=== PATIENT | female | born 1990 | race Caucasian/White ===

== ENCOUNTER 2018-07-01 11:05 | Inpatient (IN) | payer BC ==
--- NOTE | 2018-07-01 12:26 | HP ---
General Information - Reason for Visit Pt w/ ctx starting last night, stronger since this morning. Seen in office for scheduled visit, was 4cm dilation. - General Information Maternal Age: 28 Grav: 4 Para: 1 SAB: 2 IEA: 0 Estimated Due Date: 06/29/18 Determined By: Early Ultrasound Gestational Age in Weeks/Days: 40 2/7 Maternal Blood Type and Rh: A Positive - Results this Serology/RPR Result: Non-Reactive Rubella Result: Immune HBsAg Result: Negative HIV Result: Negative GBS Culture Result: Negative Past Medical History Delivery History: See Records - hx HELLP syndrome, on Magnesium Pertinent Past Medical History: Non-Contributory Pertinent Past Surgical History: See Records - inguinal hernia repar, T&A, wisdom tooth extraction Pertinent Family History: Non-Contributory - Antepartal Records Antepartal Records: Reviewed, Uncomplicated Review of Systems Constitutional: Comfortable CV Complaint: No Respiratory: Shortness of Breath: No Gastrointestinal: No Nausea/Vomiting, Normal Bowel Movement Genitourinary: No Dysuria, No Bleeding, No Leaking Fluid Musculoskeletal: Contractions Neurological: No Headache, No Visual Changes Movement: Normal Exam Allergies/Adverse Reactions: Allergies MS Cefaclor [From Ceclor] Allergy (Unknown, Verified 07/01/18 11:48) Unknown Reaction Details pt has never taken med her mother and sister were allergic MS Penicillins [Penicillins] Allergy (Unknown, Verified 07/01/18 11:48) Unknown Reaction Details pt has never taken med she said her mother and sister were allergic T-98.2, P-80, R-16, BP-96/66, O2- 100% - Measurements Height: 5 ft 3 in Weight: 66.678 kg Weight in lbs: 147.075414 Body Mass Index (BMI): 26.0 Pre- Weight: 52.163 kg Weight Gained This : 32 lbs and 0 ozs - Exam Breast: Breast Exam Deferred CVA: No CVA Tenderness Heart: Normal Rhythm/Heart Sounds HEENT: No Significant Findings Lungs: Clear Bilaterally Rectal: Rectal Exam Deferred Reflexes: DTR 2+ Thyroid: No Thyromegaly - Abdominal Exam Abdomen Exam: Non-Tender, Fundal Height Consistent with Dates - Ultrasound/Biophysical Profile Ultrasound Status: Not Done Targeted Exam Findings See L&D Outpatient Visit Provider Note for Findings: N/A Estimated Weight: 7.5 # Cervical Exam: 4cm Effacement: 90% Station: -2 Presenting Part: Vertex Membrane Status: Intact Bleeding/Discharge: None EFM Findings - External Monitor Findings Baseline Heart Rate: 130 External Monitor Findings: Accelerations Present, No Pattern of Variable or Late Decelerations, Variability Moderate, Baseline Stable Contractions: Irregular, Mild, Moderate, 45-90 Seconds Contraction Frequency: 5-10 minutes Assessment/Plan - Assessment 28 year old at 40 2/7 weeks gestation with hx HELLP syndrome in previous , in early labor, no evidence of acidemia - Obstetrical Risk Factors Obstetrical Risk Factors: Post-Dates Risk Factors Comment: hx HELLP in prior - Plan Plan: Admit - Anticipate Vaginal Delivery - Date/Time of Admission Date of Admission: 07/01/18 Time of Admission: 12:18
[2018-07-01 12:49] LABS: ABS Basophils 0.1 10^3/ul (0-0.2); ABS Eosinophils 0.1 10^3/ul (0-0.6); ABS Monocytes 0.7 10^3/ul (0-0.8); ABS Nucleated RBC 0 10^3/ul; Eosinophil % 0.7 % (0-6); Hematocrit 39 % (35-47); Hemoglobin 13.2 g/dl (12.0-16.0); Lymphocyte % 18.6 % (25-47); Mean Corpuscular HGB Conc 34 g/dl (31-36); Mean Corpuscular Hemoglobin 30 pg (27-31); Mean Corpuscular Volume 89 fL (80-97); Mean Platelet Volume 8.5 um3 (7.4-10.4); Nucleated Red Blood Cells % 0; Platelet Count 183 10^3/ul (150-450); Red Blood Count 4.39 10^6/ul (4.00-5.40); Red Cell Distribution Width 13 % (10.5-15); White Blood Count 10.9 10^3/ul (3.5-10.8)
[2018-07-01 13:16] LABS: EGFR Non-African American 129.8 (>60); Uric Acid 4.5 mg/dL (2.3-6.6)
[2018-07-01] MEDS ORDERED: Witch Hazel PAD* JAR TOPICAL PRN (21:48)
[2018-07-01] MEDS ORDERED: Glycerin ADULT SUPP PR PRN (21:48)
[2018-07-01] MEDS ORDERED: Acetaminophen TAB* 325 MG PO PRN (21:48)
[2018-07-01] MEDS ORDERED: Dibucaine 1% 28.35 GM TUBE PR PRN (21:48)
[2018-07-02] MEDS ORDERED: OXYTOCIN* 10 UNITS/ML 1 ML VIAL ONE (01:24)
[2018-07-02] MEDS: Ibuprofen TAB* 600 MG PO PRN ×4 (04:11→21:58)
[2018-07-02 06:53] LABS: ABS Basophils 0.1 10^3/ul (0-0.2); ABS Eosinophils 0 10^3/ul (0-0.6); ABS Lymphocytes 2.4 10^3/ul (1.0-4.8); ABS Monocytes 1.2 10^3/ul (0-0.8); ABS Nucleated RBC 0 10^3/ul; Eosinophil % 0.3 % (0-6); Hematocrit 39 % (35-47); Hemoglobin 13.6 g/dl (12.0-16.0); Lymphocyte % 14.3 % (25-47); Mean Corpuscular HGB Conc 35 g/dl (31-36); Mean Corpuscular Hemoglobin 31 pg (27-31); Mean Corpuscular Volume 88 fL (80-97); Mean Platelet Volume 8.5 um3 (7.4-10.4); Nucleated Red Blood Cells % 0; Platelet Count 195 10^3/ul (150-450); Red Blood Count 4.47 10^6/ul (4.00-5.40); Red Cell Distribution Width 13 % (10.5-15); White Blood Count 16.7 10^3/ul (3.5-10.8)
[2018-07-02] MEDS: Docusate CAP* 100 MG PO SCH ×3 (08:57→21:58)
[2018-07-02] MEDS ORDERED: Ferrous Gluconate TAB* 324 MG TAB PO SCH (09:00)
[2018-07-03] MEDS: Ibuprofen TAB* 600 MG PO PRN (05:50)
[2018-07-03 08:37] VITALS: BP 103/73
[2018-07-03] MEDS: Docusate CAP* 100 MG PO SCH (08:50)
--- NOTE | 2018-07-04 06:45 | PROCNOTE ---
[facility] OB: Delivery Note - Delivery A Date of : 07/01/18 Time of : 20:56 [place] Sex: Female Weight at : 3.515 kg Score 1 Minute: 9 Score 5 Minutes: 9 Gestational Age in Weeks and Days at Delivery: 40 Weeks and 2 Days Delivery Method: Spontaneous Vaginal Labor: Spontaneous Did Patient attempt ?: N/A, No Previous Amniotic Fluid: Clear Estimated Blood Loss: 300 Anesthesia/Analgesia: None Delivered By: Sandrine Clifford - Nursery Level of Nursery: Regular/Bedside - Perineum Perineal Injury: 1st Degree - Events Delivery Events of Note: None Apply - Additional Delivery Notes Additional Delivery Notes: Pt admitted in active labor. She progressed to full dilation, using no pain medications or epidural. She began spontaneous and effective pushing soon after. She birthed a viable female infant OA to XU, with shoulders easily following head. placed on maternal abdomen, dried and stimulated, Apgars of 9/9. After pulsation ceased, cord was clamped and cut. Placenta soon delivered, maternal side presenting, complete and intact. Pt sustained a small first degree perineal laceration, repaired with absorbable suture resulting in good hemostasis and tissue approximation. Pt and infant stable, anticipate normal course.
== END 2018-07-03 11:29 | disposition home or self-care (01) | DRG 560 ==
LOC: MCHOBOUT 11:05 → MCHOB 12:18
PROVIDERS: ADMIT Midwife; ATTEND Midwife
PROC: 10E0XZZ Delivery of Products of Conception, External Approach (ICD-10-PCS; principal; 2018-07-01)
PROC: 10907ZC Drainage of Amniotic Fluid, Therapeutic from Products of Conception, Via Natural or Artificial Opening (ICD-10-PCS; 2018-07-01)
PROC: 0HQ9XZZ Repair Perineum Skin, External Approach (ICD-10-PCS; 2018-07-01)
DX: O48.0 Post-term pregnancy (principal); O70.0 First degree perineal laceration during delivery; Z3A.40 40 weeks gestation of pregnancy; Z37.0 Single live birth
CPT/HCPCS: 36415; 80053; 84550; 85025; 86850; 86900; 86901; A9270-GY; J2590